=== PATIENT | female | born 1980 | race Caucasian/White ===

== ENCOUNTER → 2021-04-19 | Outpatient (CLI) | payer OTHER ==
[~2021-04-19] MED LIST: ZITHROMAX Z PA250 MG PO
== END | disposition home or self-care (01) ==
LOC: MAMMO 10:30
PROVIDERS: ATTEND Nurse Practitioner Family
DX: Z12.31 Encounter for screening mammogram for malignant neoplasm of breast (principal); N64.89 Other specified disorders of breast

== ENCOUNTER 2022-05-10 07:30 | Emergency (ER) | payer BC ==
[~2022-05-10] VITALS: Ht 172.7 cm; Wt 106.6 kg
[2022-05-10] MEDS ORDERED: PREDNISONE50 MG PO (11:05)
== END 2022-05-10 11:36 | disposition home or self-care (01) ==
LOC: ED 07:30
DX: L24.9 Irritant contact dermatitis, unspecified cause (principal); Z91.018 Allergy to other foods; Z88.8 Allergy status to other drugs, medicaments and biological substances; Z98.890 Other specified postprocedural states

== ENCOUNTER → 2024-05-16 | Outpatient (CLI) | payer BC ==
[~2024-05-16] MED LIST changes: +PREDNISONE50 MG PO
== END | disposition home or self-care (01) ==
LOC: RAD 09:16
PROVIDERS: ATTEND Internal Medicine
DX: G89.29 Other chronic pain (principal); Z97.5 Presence of (intrauterine) contraceptive device

== ENCOUNTER 2024-08-16 21:28 | Emergency (ER) | payer OTHER ==
[~2024-08-16] VITALS: Ht 172.7 cm; Wt 113.4 kg
[2024-08-16] MEDS ORDERED: IOHEXOL 300 MG/ML 100 ML VIAL IV ONE (21:55)
[2024-08-16 22:07] LABS: BILIRUBIN Negative (Negative); BLOOD Negative (Negative); CLARITY Clear (Clear); COLOR Dark Yellow (Yellow); GLUCOSE Negative (Negative); KETONE Trace (Negative); LEUKO ESTERASE Negative (Negative); NITRITE Negative (Negative); PH 5.5 (4.5-8.0); SPECIFIC GRAVITY 1.025 (1.001-1.030)
[2024-08-16 22:14] LABS: EPITHELIAL CELLS 16-20; FINE GRANULAR CAST 0-2; MUCOUS 1+; WBC 0-2 wbc/hpf (0-5)
[2024-08-16 22:29] LABS: BASO % 0.2 % (0.0-1.0); EOS # 0.2 10*3/uL (0.0-0.4); EOS % 1.4 % (1.0-4.0); HEMATOCRIT 37.3 % (37.0-47.0); MEAN CORPUSCULAR HGB 30.7 pg (27.0-31.0); MEAN CORPUSCULAR HGB CONC 32.7 g/dl (33.0-37.0); MEAN PLATELET VOLUME 9.7 fl (9.6-12.3); MONO # 0.9 10*3/uL (0.1-1.0); MONO % 6.7 % (3.0-9.0); NEUT % 67.7 % (47.0-73.0); PLATELET COUNT AUTOMATED 317 10*3/uL (130-400); RED BLOOD COUNT 3.97 10*6/uL (4.10-5.10); RED CELL DISTRI WIDTH 12.4 % (0-14.5); WHITE BLOOD COUNT 13.2 10*3/uL (4.8-10.8)
[2024-08-16 22:59] LABS: ALKALINE PHOSPHATASE 61 U/L (46-116); BUN 9 mg/dl (9-23); CHLORIDE 104 mmol/L (98-107); LIPASE 32 U/L (12-53); POTASSIUM 3.6 mmol/L (3.4-5.1); SGPT/ALT 18 U/L (5-49); TOTAL PROTEIN 6.5 gm/dL (6.0-8.0)
[2024-08-16] MEDS ORDERED: CIPRO500 MG PO (23:59)
[2024-08-16] MEDS ORDERED: METRONIDAZOLE500 M1 PO (23:59)
[2024-08-17] MEDS ORDERED: Ciprofloxacin Hydrochloride 500 MG TAB PO ONE ×2 (00:05→23:55)
[2024-08-17] MEDS ORDERED: metroNIDAZOLE 500 MG TAB PO ONE ×2 (00:05→23:55)
== END 2024-08-17 00:32 | disposition home or self-care (01) ==
LOC: ED 21:28
PROVIDERS: Nurse Practitioner Family
DX: K57.32 Diverticulitis of large intestine without perforation or abscess without bleeding (principal); Z79.899 Other long term (current) drug therapy